=== PATIENT | male | born 1975 | race Caucasian/White ===

== ENCOUNTER 2020-11-17 10:00 | Outpatient (RCR) | payer OTHER ==
--- NOTE | 2020-12-21 13:05 | 30 Day Event Recorder ---
30-DAY EVENT RECORDER 30-DAY EVENT RECORDER DATE OF PROCEDURE: 11/17/2020-12/16/2020. INDICATION: Paroxysmal atrial fibrillation. PROCEDURE: A 30-day event recorder was obtained for a total of 24 days and 15 hours. 27 rhythm strips were presented for review. The study quality is adequate. RESULTS: 1. Baseline sinus rhythm with an average heart rate of 68 bpm, ranging from 46- 202 bpm with 18 episodes of paroxysmal atrial fibrillation with a total duration of 5 hours and 45 minutes with a longest single episode of 2 hours and 56 minutes with an average heart rate of 108 bpm while in atrial fibrillation. 2. There were occasional, isolated premature supraventricular complexes representing 2% of the total recording time and rare, isolated premature ventricular complexes representing approximately 1% of the total recording time. 3. No symptoms appear to have been reported during the test. IMPRESSION: 1. This is a 30-day event monitor that was obtained for a total of 24 days and 15 hours. 2. Baseline sinus rhythm with an average heart rate of 68 bpm, ranging from 46- 202 bpm with 18 episodes of paroxysmal atrial fibrillation with a total duration of 5 hours and 45 minutes with a longest single episode of 2 hours and 56 minutes with an average heart rate of 108 bpm while in atrial fibrillation with occasional, isolated premature supraventricular complexes and rare, isolated premature ventricular complexes. 3. No symptoms appear to have been reported during the test. Certain portions of this document may have been dictated utilizing voice recognition technology. Inherent to this technology, typographical and grammatical errors may exist. As much as I am diligent to identify and correct these mistakes, some errors may remain in the document. VIRGIL ONEILL JR, MD Dec 21, 2020 13:05
== END 2021-02-15 | disposition home or self-care (01) ==
LOC: CARD 10:00
PROVIDERS: ATTEND Internal Medicine Cardiovascular Disease
DX: I48.0 Paroxysmal atrial fibrillation (principal); I51.7 Cardiomegaly
CPT/HCPCS: 93270; 93306

== ENCOUNTER → 2021-12-28 | Outpatient (CLI) | payer BC, OTHER | LOC: CARD 08:11 | PROVIDERS: ATTEND Internal Medicine Cardiovascular Disease | DX: I08.2 Rheumatic disorders of both aortic and tricuspid valves (principal); I48.0 Paroxysmal atrial fibrillation | CPT/HCPCS: 93306 ==

== ENCOUNTER → 2022-01-31 | Outpatient (CLI) | payer BC ==
[~2022-01-31] MED LIST: CATHETER FLUSH 10 ML SYR IVP PRN
[2022-01-31 08:20] VITALS: BP 115/84
--- NOTE | 2022-01-31 16:35 | NUCLEAR STRESS TEST ---
[facility] NUCLEAR STRESS TEST Date of procedure: 01/31/2022. Primary care provider: Brett Howard Admitting physician: Berny Carmona Jr., MD. INDICATION: Cardiomyopathy. BASELINE ELECTROCARDIOGRAM: Atrial fibrillation with a ventricular rate of 79 bpm with nonspecific intraventricular conduction delay and possible old septal myocardial infarction. STRESS TEST PROCEDURE: The patient was exercised for a total of 7 minutes and 30 seconds of the standard [facility] protocol achieving a maximum MET level of 9.1. The resting heart rate was 79 bpm and the peak heart rate was 173 bpm, which represents 98% of the maximum predicted heart rate. The resting blood pressure was 115/54 mmHg and the peak blood pressure was 133/87 mmHg. This represents a normal heart rate and a blunted blood pressure response to exercise. The test was stopped due to target heart rate attained. There was no chest discomfort during the test. The patient was in atrial fibrillation for the duration of the test. There were no significant stress induced electrocardiogram changes. The patient exhibited good exercise capacity for age. NUCLEAR PROCEDURE: The patient was administered 10.4 mCi of intravenous technetium 99m Tetrofosmin at rest for the rest images. The patient was subsequently administered 29.9 mCi of intravenous technetium 99 M Tetrofosmin at peak stress for the stress images. Following an appropriate wait after each injection, imaging was obtained. The images were subsequently processed and reformatted in the usual views. Gated imaging was obtained. The image quality was adequate with a mild degree of gastrointestinal and vertical motion artifact. CT attenuation correction was used as a adjunct to standard imaging. Both the corrected and uncorrected images were reviewed for interpretation. NUCLEAR RESULTS: There was a small, mild intensity, reversible apical defect with a small amount of inducible ischemia with a summed stress score of 2 and a summed difference score of 2. There was normal left ventricular chamber size with an end-diastolic volume of 70 mL and an end-systolic volume of 31 mL. There was no evidence of transient ischemic dilatation. The TID ratio was 0.83. There was paradoxical septal motion consistent with an intraventricular cond uction delay and overall preserved left ventricular systolic function with a calculated ejection fraction of 55%. IMPRESSION: 1. Normal heart rate and a blunted blood pressure response to exercise. 2. There was no chest discomfort or electrocardiogram changes during the test. 3. The patient was in atrial fibrillation throughout the test. 4. The patient exhibited good exercise capacity for age at 7 minutes and 30 seconds of the [facility] protocol. 5. There was a small, mild intensity, reversible apical defect with a small amount of inducible ischemia with a summed stress score of 2 and a summed difference score of 2. 6. There was paradoxical septal motion consistent with an intraventricular conduction delay and overall preserved left ventricular systolic function with a calculated ejection fraction of 55%. 7. This is an abnormal result although represents low risk for possible future coronary ischemic events. Certain portions of this document may have been dictated utilizing voice recognition technology. Inherent to this technology, typographical and grammatical errors may exist. As much as I am diligent to identify and correct these mistakes, some errors may remain in the document. BERNY CARMONA JR, MD Jan 31, 2022 16:35
== END ==
LOC: CARD 07:30
PROVIDERS: ATTEND Internal Medicine Cardiovascular Disease
DX: I42.9 Cardiomyopathy, unspecified (principal)
CPT/HCPCS: 78452; 93017; A9502